=== PATIENT | female | born 1975 | race Caucasian/White ===

== ENCOUNTER 2023-10-08 12:19 | Emergency (ER) | payer MEDICAID ==
[~2023-10-08] VITALS: Ht 162.6 cm; Wt 99.8 kg
[2023-10-08 12:25] VITALS: BP 139/101; PULSE 117; RESP 18; TEMP 97.5; O2SAT 97
[2023-10-08] MEDS ORDERED: KETOROLAC 30 MG/ML VIAL ONE (13:23)
[2023-10-08] MEDS ORDERED: diphenhydrAMINE 50 MG/ML VIAL ONE (13:23)
[2023-10-08] MEDS: KETOROLAC 30 MG/ML VIAL IVP ONE (13:37)
[2023-10-08] MEDS: PROCHLORPERAZINE 10 MG/2 ML VIAL IVP ONE (13:40)
[2023-10-08] MEDS: diphenhydrAMINE 50 MG/ML VIAL IVP ONE (13:43)
[2023-10-08 15:00] VITALS: BP 162/95; PULSE 97; RESP 16; TEMP 36.39180; O2SAT 97
== END 2023-10-08 15:00 | disposition home or self-care (01) ==
LOC: MED 12:19
DX: G43.909 Migraine, unspecified, not intractable, without status migrainosus (principal); R11.2 Nausea with vomiting, unspecified; Z98.890 Other specified postprocedural states; F15.90 Other stimulant use, unspecified, uncomplicated; I10 Essential (primary) hypertension; Z98.51 Tubal ligation status; Z90.711 Acquired absence of uterus with remaining cervical stump
CPT/HCPCS: 81025; 96374; 96375; 99284; J0780; J1200; J1885

== ENCOUNTER 2023-10-14 04:25 | Emergency (ER) | payer MEDICAID ==
[~2023-10-14] VITALS: Ht 154.9 cm; Wt 99.8 kg
[2023-10-14 04:33] VITALS: BP 189/117; PULSE 95; RESP 18; TEMP 98.2; O2SAT 98
[2023-10-14 05:22] VITALS: O2SAT 98
[2023-10-14] MEDS: KETOROLAC 60 MG/2 ML VIAL IM ONE (05:35)
[2023-10-14] MEDS: NACL 0.9% 1,000 ML IV ONE (06:52)
[2023-10-14] MEDS: diphenhydrAMINE 50 MG/ML VIAL IVP ONE (06:55)
[2023-10-14] MEDS: PROCHLORPERAZINE 10 MG/2 ML VIAL IVP ONE (06:56)
[2023-10-14] MEDS: DEXAMETHASONE 10 MG/ML VIAL IVP ONE (06:57)
[2023-10-14] MEDS ORDERED: NAPR-337 PO (07:26)
[2023-10-14] MEDS ORDERED: CYCL-711 PO (07:26)
[2023-10-14 08:10] VITALS: BP 152/98; PULSE 97; RESP 16; TEMP 98.2; O2SAT 97
== END 2023-10-14 08:10 | disposition home or self-care (01) ==
LOC: MED 04:25
DX: M54.2 Cervicalgia (principal); G43.909 Migraine, unspecified, not intractable, without status migrainosus; K08.89 Other specified disorders of teeth and supporting structures; E11.9 Type 2 diabetes mellitus without complications; I10 Essential (primary) hypertension; M06.9 Rheumatoid arthritis, unspecified; Z79.1 Long term (current) use of non-steroidal anti-inflammatories (NSAID); Z79.899 Other long term (current) drug therapy
CPT/HCPCS: 72040; 96361; 96372; 96374; 96375; 99285; J0780; J1100; J1200; J1885; J7030; Q0092